=== PATIENT | female | born 1975 | race Caucasian/White ===

== ENCOUNTER 2016-10-03 08:26 | Outpatient (CLI) ==
[2013-08-14 07:14] VITALS: BMI 26.1
--- NOTE | 2016-10-03 09:22 | US ---
EXAM: Renal ultrasound. History: Urinary tract infection, back pain. Technique: Multiple sonographic images through the kidneys were obtained. Color duplex Doppler was used to interrogate vascular flow. Findings: The bladder was not well distended. The right kidney measures 8.7 cm in long length demonstrating normal cortical echogenicity without e vidence for hydronephrosis, mass or shadowing calculus. The left kidney measures 8.6 cm in long length demonstrating normal cortical echogenicity without ev idence for hydronephrosis, mass or shadowing calculus. Impression: No acute sonographic findings
== END 2016-10-03 08:27 | disposition home or self-care (01) ==
LOC: RAD 08:26
PROVIDERS: ATTEND Family Medicine
DX: N39.0 Urinary tract infection, site not specified (principal); M54.9 Dorsalgia, unspecified
CPT/HCPCS: 76770

== ENCOUNTER 2017-08-17 16:02 | Emergency (ER) ==
[2017-08-17] MEDS ORDERED: DILAUDID 1 MG/ML SYRINGE IVP STA (16:11)
[2017-08-17] MEDS ORDERED: ZOFRAN 4 MG/2 ML IVP STA (16:12)
[2017-08-17 16:44] VITALS: BP 117/81; TEMP 97.4; BMI 23.8
[2017-08-17] MEDS ORDERED: SODIUM CHLORIDE 1,000 ML IV STA (16:54)
--- NOTE | 2017-08-17 17:29 | CT ---
EXAM: CT abdomen and pelvis without contrast HISTORY: Abdominal pain for a couple hours at left upper quadrant with nausea TECHNIQUE: Multi-slice transaxial helical with coronal and sagittal reformed images COMPARISON: None FINDINGS: The lung bases are free of acute airspace or interstitial opacities. The heart size is nor mal. There are no pericardial or pleural effusions. The hepatic attenuation is normal relative to the spleen. The spleen has normal size and attenuation. The gallbladder is present without biliary dilatation. The adrenal glands are normal. The kidneys have normal size and attenuation. The ureters are nondilated. The nonopacified bladder is grossly normal. The uterus and adnexa are grossly normal. Tubal ligations have been performed in the past. The appendix is not visualized. No localized pericecal inflammation is evident. The intestines have normal caliber. No lymphadenopathy or ascites are appreciated. The aorta has normal caliber. The bones are free of suspicious osteolytic or osteoblastic lesions. IMPRESSION: 1. Nonobstructive intestinal gas pattern. 2. Previous tubal ligation. 3. No lymphadenopathy or ascites. 4. Normal renal collecting systems.
--- NOTE | 2017-08-17 17:40 | ED.PDOC ---
General ED Provider: Dr. OLGA CHICAS-ER Chief Complaint: Abdominal Pain Stated Complaint: im hurting and i think its my ibs Time Seen by Physician: 16:15 Mode of Arrival: Wheelchair Information Source: Patient Exam Limitations: No limitations Primary Care Provider: ABDON DEVI Nursing and Triage Documentation Reviewed and Agree: Yes Reviewed sepsis parameters & appropriate labs ordered?: Yes System Inflammatory Response Syndrome: Not Applicable Sepsis Protocol: For patient's 13 years and over: Temp is 96.8 and below OR 101 and greater Pulse >90 BPM Resp >20/minute Acutely Altered Mental Status Are patient's symptoms suggestive of a new infection, such as: -Pneumonia -Skin, Soft Tissue -Endocarditis -UTI -Bone, Joint Infection -Implantable Device -Acute Abdominal Infection -Wound Infection -Meningitis -Blood Stream Catheter Infection -Unknown GI Complaint Exam - Abdominal Pain Complaint/Exam Onset: Gradual Duration: several hours Symptoms Are: Still present Timing: Constant Initial Severity: Mild Current Severity: Moderate Location of Pain: Discrete, LUQ Character: Reports: Dull, Cramping Alleviating: Reports: None Associated Signs and Symptoms: Reports: Nausea Patient Rh Status: Unknown Abdominal Findings: Present: None Differential Diagnoses: Bowel Obstruction, Constipation, Pancreatitis, Ureteral Stone Review of Systems - Review Of Systems Constitutional: Reports: No symptoms Eyes: Reports: No symptoms Ears, Nose, Mouth, Throat: Reports: No symptoms Respiratory: Reports: No symptoms Cardiac: Reports: No symptoms GI: Reports: Abdominal pain, Nausea : Reports: No symptoms Musculoskeletal: Reports: No symptoms Skin: Reports: No symptoms Neurological: Reports: No symptoms Endocrine: Reports: No symptoms Hematologic/Lymphatic: Reports: No symptoms All Other Systems: Reviewed and Negative Past Medical History - Past Medical History Previously Healthy: Yes Endocrine: Reports: Unknown Cardiovascular: Reports: Unknown Respiratory: Reports: Other Hematological: Reports: None Gastrointestinal: Reports: Other (ibs) Genitourinary: Reports: None Neuro/Psych: Reports: None Musculoskeletal: Reports: None Cancer: Reports: None Last Menstrual Period: 2 yrs ago - none since uterine ablation - Surgical History General Surgical History: Reports: Unknown - Family History Family History: Reports: Unknown - Social History Smoking Status: Never smoker Hx Substance Use: No Alcohol Screening: None - Immunizations Tetanus Shot up to Date: Yes Physical Exam - Physical Exam Appearance: Well-appearing, No pain distress, Well-nourished Eyes: FRANCESCA ENT: Ears normal, Nose normal, Oropharynx normal Neck: Supple Respiratory: Airway patent Cardiovascular: RRR, Pulses normal, No rub, No murmur GI/: Bowel sounds normal, No Organomegaly, Tender Musculoskeletal: Normal strength, ROM intact, No edema, No calf tenderness Skin: Warm, Dry, Normal color Neurological: Sensation intact Psychiatric: Affect appropriate, Mood appropriate, Anxious Interpretation - Radiology Interpretation Radiology Interpretation By: Radiologist Radiology Results: Negative Exam Interpreted: CT Scan Re-Evaluation - Re-Evaluation Time of Re-Evaluation: 17:40 Status: Improved (sittibng up in bed--laughing and talking) Vital Signs Stable: Yes Pain Level: 0 Appearance: NAD Lungs: Clear Skin: Warm and Dry Neuro: Alert and Oriented X3 CV: RRR Critical Care Note - Critical Care Note Total Time (mins): 0 Course - Course Hematology/Chemistry: 08/17/17 16:20 08/17/17 16:20 Orders, Labs, Meds: Lab Review 08/17/17 08/17/17 08/17/17 16:20 16:20 16:20 WBC 13.73 H RBC 4.60 Hgb 13.5 Hct 39.0 MCV 84.8 MCH 29.3 MCHC 34.6 RDW Coeff of Yolande 12.2 Plt Count 266 Immature Gran % (Auto) 0.2 Neut % (Auto) 82.4 Lymph % (Auto) 11.9 Thomas % (Auto) 5.2 Eos % (Auto) 0.1 Baso % (Auto) 0.2 Immature Gran # (Auto) 0.0 Neut # (Auto) 11.3 H Lymph # (Auto) 1.6 Thomas # (Auto) 0.7 Eos # (Auto) 0.0 Baso # (Auto) 0.0 ESR 2 Sodium 138 Potassium 3.7 Chloride 106 Carbon Dioxide 23 Anion Gap 12.7 BUN 11 Creatinine 1.04 Estimated GFR (MDRD) 58.00 BUN/Creatinine Ratio 10.57 Glucose 151 H Calcium 8.6 Total Bilirubin 0.4 AST 20 ALT 14 Alkaline Phosphatase 57 Total Protein 6.3 L Albumin 3.5 Globulin 2.8 Albumin/Globulin Ratio 1.25 Amylase 91 Lipase 58 Serum , Qual Negative Urine Color Urine Clarity Urine pH Ur Specific [place] Urine Protein Urine Glucose (UA) Urine Ketones Urine Blood Urine Nitrite Urine Bilirubin Urine Urobilinogen Ur Leukocyte Esterase Ur Squamous Epith Cells Amorphous Sediment Urine Bacteria 08/17/17 16:45 WBC RBC Hgb Hct MCV MCH MCHC RDW Coeff of Yolande Plt Count Immature Gran % (Auto) Neut % (Auto) Lymph % (Auto) Thomas % (Auto) Eos % (Auto) Baso % (Auto) Immature Gran # (Auto) Neut # (Auto) Lymph # (Auto) Thomas # (Auto) Eos # (Auto) Baso # (Auto) ESR Sodium Potassium Chloride Carbon Dioxide Anion Gap BUN Creatinine Estimated GFR (MDRD) BUN/Creatinine Ratio Glucose Calcium Total Bilirubin AST ALT Alkaline Phosphatase Total Protein Albumin Globulin Albumin/Globulin Ratio Amylase Lipase Serum , Qual Urine Color Yellow Urine Clarity Cloudy Urine pH 8.5 Ur Specific [place] 1.020 Urine Protein Negative Urine Glucose (UA) Negative Urine Ketones Negative Urine Blood Negative Urine Nitrite Negative Urine Bilirubin Negative Urine Urobilinogen 0.2 Ur Leukocyte Esterase Negative Ur Squamous Epith Cells 5-10 Amorphous Sediment 3+ Urine Bacteria 1+ Orders Category Date Time Status NPO REMINDER: IMAGING ONCE CARE 08/17/17 16:12 Completed IV [ED IV/MEDIPORT/POWERPORT] .ONCE EMERGENCY 08/17/17 16:11 Active AMYLASE Stat LAB 08/17/17 16:20 Completed CBC W/ AUTO DIFF Stat LAB 08/17/17 16:20 Completed COMPREHENSIVE METABOLIC PANEL Stat LAB 08/17/17 16:20 Completed ESR Stat LAB 08/17/17 16:20 Completed LIPASE Stat LAB 08/17/17 16:20 Completed SERUM Stat LAB 08/17/17 16:20 Completed UA [URINALYSIS C & S IF INDICATED] Stat LAB 08/17/17 16:45 Completed URINE CULTURE Stat LAB 08/17/17 16:45 Received 0.9 % Sodium Chloride [Saline Flush] MEDS 08/17/17 16:11 Ordered 1 syr IVF PRN PRN Hydromorphone HCl [Dilaudid 1 mg/ml Syringe] MEDS 08/17/17 16:11 Discontinued 1 mg IVP ONCE STA Ondansetron HCl/Pf [Zofran 4 mg/2 ml] MEDS 08/17/17 16:12 Discontinued 4 mg IVP ONCE STA Sodium Chloride 0.9% [Sodium Chloride] 1,000 ml MEDS 08/17/17 16:[address] ABDOMEN/PELVIS WO CONTRAST Stat RADS 03/04/18 16:59 Completed Medications Generic Name Dose Route Start Last Admin Trade Name Freq PRN Reason Stop Dose Admin Sodium Chloride 1,000 mls @ 1,000 mls/hr 08/17/17 16:54 08/17/17 17:09 Sodium Chloride IV 08/17/17 17:53 1,000 mls/hr BOLUS STA Administration Sodium Chloride 1 syr 08/17/17 16:11 08/17/17 17:09 Saline Flush IVF 1 syr PRN PRN Administration To flush IV Discontinued Medications Generic Name Dose Route Start Last Admin Trade Name Freq PRN Reason Stop Dose Admin Hydromorphone HCl 1 mg 08/17/17 16:11 08/17/17 16:36 Dilaudid 1 Mg/Ml Syringe IVP 08/17/17 16:12 1 mg ONCE STA Administration Ondansetron HCl 4 mg 08/17/17 16:12 08/17/17 16:36 Zofran 4 Mg/2 Ml IVP 08/17/17 16:13 4 mg ONCE STA Administration Vital Signs: Temp Pulse Resp BP Pulse Ox 08/17/17 16:09 97.4 F L 71 18 117/81 99 Departure - Departure Time of Disposition: 17:40 Disposition: HOME SELF-CARE Discharge Problem: Abdominal pain Instructions: Acute Abdominal Pain (DC) Condition: Good Pt referred to PMD for follow-up: Yes IPMP verified?: No Additional Instructions: zofran 4mg q 4hrs nausea #4--bentyl 10mg qid prn pain#30---f/u wtih dr devi Allergies/Adverse Reactions: Allergies No Known Allergies Allergy (Unverified 08/14/13 07:19) Home Medications: Ambulatory Orders Duloxetine HCl [Cymbalta] 1 cap PO BEDTIME 08/17/17 Disposition Discussed With: Patient, Family
== END 2017-08-17 17:50 | disposition home or self-care (01) ==
LOC: ED 16:02
DX: R10.9 Unspecified abdominal pain (principal); Z87.19 Personal history of other diseases of the digestive system
CPT/HCPCS: 36415; 80053; 81001; 82150; 83690; 84703; 85025; 85651; 87086; 96361; 96374; 96375; 99283

== ENCOUNTER 2018-03-09 15:02 | Outpatient (CLI) ==
--- NOTE | 2018-03-09 15:32 | DI ---
EXAM: Single view of the abdomen. History: Urinary tract infection. Comparison: CT abdomen pelvis 08/17/2017 Findings: Nonspecific but nonobstructive bowel gas pattern. Large amount colonic stool. Surgical c lips are seen within the pelvis. No free intraperitoneal air. No acute osseous abnormalities. No s uspicious calcifications are seen projecting over the renal shadows. Impression: Large amount colonic stool
== END 2018-03-09 15:03 | disposition home or self-care (01) ==
LOC: RAD 15:02
PROVIDERS: ATTEND Family Medicine
DX: N39.0 Urinary tract infection, site not specified (principal); K21.0 Gastro-esophageal reflux disease with esophagitis; K59.01 Slow transit constipation